=== PATIENT | female | born 1950 | race Caucasian/White ===

== ENCOUNTER → 2017-03-25 | Day surgery (SDC) | payer OTHER ==
--- NOTE | 2017-03-26 17:34 | PATH ---
Cytology Non-Gynecological Report Patient Name: DREA LEUNG [facility]. Rec. #: [id number] /Age/Gender: 1950 (Age: 66) / F Account: [id number] Location: RADIOLOGY Taken: 03/25/2017 Received: 03/25/2017 Reported: 03/26/2017 Physicians: Mile Uriostegui M.D. Specimen(s) Received ISTHMUS Clinical History Isthmus 1.51 x 1.59 x 0.95 cm Final Diagnosis THYROID, ISTHMUS, FINE NEEDLE ASPIRATION: SATISFACTORY FOR EVALUATION. [place] CATEGORY V: SUSPICIOUS FOR MALIGNANCY. SUSPICIOUS FOR PAPILLARY THYROID CARCINOMA. HYPERCELLULAR SPECIMEN WITH CLUSTERS OF ATYPICAL CELLS SHOWING NUCLEAR CLEARING WITH NUCLEAR GROOVES AND PSEUDOINCLUSIONS PRESENT. Comment: Recommend correlation with clinical and radiologic findings and follow up as clinically indicated. This case was discussed with Dr. Marrero on 03/26/2017. Electronically Signed Jovan Martin M.D. Gross Description Received are eight direct smears, four of which are air-dried and Diff-Quik stained, and four of which are alcohol fixed and Pap stained. Also received is 20 ml of bloody formalin from which one cellblock is prepared.
== END | disposition home or self-care (01) ==
LOC: JRADIR 08:23
PROVIDERS: ATTEND Internal Medicine Endocrinology, Diabetes & Metabolism
PROC: 0G9K3ZX Drainage of Thyroid Gland, Percutaneous Approach, Diagnostic (ICD-10-PCS; principal; 2017-03-25)
PROC: BG43ZZZ Ultrasonography of Parathyroid Glands (ICD-10-PCS; 2017-03-25)
DX: D44.0 Neoplasm of uncertain behavior of thyroid gland (principal)
CPT/HCPCS: 76942; 88173; 88305-TC